=== PATIENT | female | born 1945 | race Caucasian/White ===

== ENCOUNTER 2016-11-22 08:15 | Day surgery (SDC) | payer MEDICARE, OTHER ==
[2016-11-22 09:06] VITALS: BMI 32.8
[2016-11-22 11:03] VITALS: O2SAT 100
[2016-11-22] MEDS ORDERED: Lidocaine Hydrochloride 5 ML INJ ONE (11:19)
[2016-11-22] MEDS ORDERED: Propofol 10 mg/ml Inj (20 ML) ONE (11:19)
[2016-11-22 12:12] VITALS: TEMP 98.2
[2016-11-22 12:51] VITALS: RESP 14
[2016-11-22 13:17] VITALS: BP 124/54; PULSE 59
== END 2016-11-22 13:18 | disposition home or self-care (01) ==
LOC: C.ENDO 08:15
PROVIDERS: ATTEND Internal Medicine Gastroenterology
DX: K21.0 Gastro-esophageal reflux disease with esophagitis (principal); K29.50 Unspecified chronic gastritis without bleeding; Z12.11 Encounter for screening for malignant neoplasm of colon; D12.2 Benign neoplasm of ascending colon; K64.1 Second degree hemorrhoids; B96.81 Helicobacter pylori [H. pylori] as the cause of diseases classified elsewhere
CPT/HCPCS: 43239; 45380; 88305; 88312; 88342; J2704; J3010; J7040

== ENCOUNTER 2018-01-29 10:07 | Emergency (ER) | payer MEDICARE, OTHER ==
[2018-01-29 10:07] VITALS: BMI 32.8
[2018-01-29 10:18] VITALS: O2SAT 100
[2018-01-29] MEDS ORDERED: Sodium Chloride 0.9% 1,000 ML IV ONE (10:44)
[2018-01-29] MEDS ORDERED: Sodium Chloride 0.9% 1,000 ML ONE (10:51)
[2018-01-29 11:13] LABS: BASO # 0.1 K/uL (0.0-0.2); BASO % 0.8 % (0.0-2.0); EOS # 0.4 K/uL (0.0-0.7); EOS % 4.7 % (0.0-4.0); LYMPH % 22.2 % (20.0-40.0); MEAN CELL VOLUME 85.5 fL (81.0-99.0); MEAN CORPUSCULAR HEMOGLOBIN 28.8 pg (27.0-31.0); MEAN CORPUSCULAR HGB CONC 33.7 g/dL (33.0-37.0); MEAN PLATELET VOLUME 8.2 fL (7.2-11.7); MONO # 0.8 K/uL (0.0-0.8); MONO % 9.2 % (0.0-10.0); NEUT # 5.7 K/uL (1.8-7.0); NEUT % 63.1 % (50.0-75.0); RBC 4.5 Mil/uL (3.80-5.20); RED CELL DISTRIBUTION WIDTH 14.1 % (11.5-14.5)
--- NOTE | 2018-01-29 11:19 | C.PDOC ---
History Of Present Illness 72yo female with history of asthma, hypertension, vertigo, and osteoporosis, comes to ER from [facility] for evaluation of dizziness and fall prior to arrival. Patient states she got up from a chair, felt dizzy and fell down and hit her head on the table. Patient now is complaining of right sided headache. Otherwise, she denies severe headache, vision changes, focal deficits , nausea, vomiting, neck pain, CP, SOB, dyspnea, diaphoresis, palpitation, abdominal pain, saddle anesthesia, incontinence, denies weakness, deformity to B /L lEs. Pt admits, takes Meclizine for intermittent dizziness, had similar sx in past. take meclizine ' every other day, did not take today". AT present time , pt appears comfortable, not in any apparent distress. FYI: I spoke with nurse at [facility] who reports she witnessed the fall and states the patient did not have a syncopal episode or loss of consciousness ; she states the patient was awake during the entire incident and was of normal affect after the fall. As per nurse, pt was ambulatory after fall at [facility] without difficulty. The nurse reported patient usually walks with a cane but did not use it today. Time Seen by Provider: 01/29/18 10:08 Chief Complaint (Nursing): Dizziness/Lightheaded History Per: Patient History/Exam Limitations: no limitations Onset/Duration Of Symptoms: Hrs Activity At Onset Of Symptoms: Sitting Seizure Or Post-ictal Symptoms: None Possible Causative Factor(s): Vertigo Fall Associated With With Symptoms: Yes, Positive Injury (hit head on side of table) Additional History Per: Patient Past Medical History Reviewed: Historical Data, Nursing Documentation, Vital Signs Vital Signs: Last Vital Signs Temp 98.1 F 01/29/18 14:13 Pulse 68 01/29/18 14:13 Resp 16 01/29/18 14:13 BP 138/69 01/29/18 14:13 Pulse Ox 100 01/29/18 14:13 - Medical History PMH: Anxiety, Arthritis, Asthma, HTN, Hypercholesterolemia, Hyperlipidemia, Osteoporosis Denies: HIV, Chronic Kidney Disease Surgical History: No Surg Hx - [facility] Procedures ENDOSC POLYPECTOMY OF LG INTEST (04/22/15) Family History: States: No Known Family Hx - Social History Hx Tobacco Use: No Hx Alcohol Use: No Hx Substance Use: No - Immunization History Hx Tetanus Toxoid Vaccination: No Hx Influenza Vaccination: No Hx Pneumococcal Vaccination: No Review Of Systems Except As Marked, All Systems Reviewed And Found Negative. Constitutional: Negative for: Fever, Chills Eyes: Negative for: Vision Change Cardiovascular: Negative for: Chest Pain Respiratory: Negative for: Shortness of Breath Gastrointestinal: Negative for: Vomiting, Abdominal Pain Musculoskeletal: Positive for: Neck Pain. Negative for: Arm Pain, Back Pain, Leg Pain Neurological: Positive for: Headache, Dizziness. Negative for: Weakness, Numbness, Incoordination, Seizures Physical Exam - Physical Exam Appears: Well, Non-toxic, No Acute Distress Skin: Warm, Dry, No Ecchymosis Head: Normacephalic, Tenderness (right occipital scalp tenderness), No Swelling , No Abrasion, No Laceration Eye(s): bilateral: PERRL, EOMI Ear(s): Bilateral: Normal Nose: No Flaring, No Discharge Oral Mucosa: Moist Tongue: Normal Appearing Lips: Normal Appearing Throat: No Drooling Neck: Normal ROM, Trachea Midline, No Midline Cervical Tenderness, No Paracervical Tenderness, No Step Off Deformity, Supple Chest: Symmetrical, No Deformity, No Tenderness Cardiovascular: Rhythm Regular, No Murmur, No JVD, Other ((-) carotid bruits B/L ) Respiratory: No Decreased Breath Sounds, No Accessory Muscle Use, No Stridor, No Wheezing, No Plerual Rub Gastrointestinal/Abdominal: Soft, No Tenderness, No Distention, No Guarding Back: No Vertebral Tenderness, No Paraspinal Tenderness Extremity: Normal ROM, No Tenderness, No Pedal Edema, No Deformity, No Swelling Neurological/Psych: Oriented x3, Normal Speech, Normal Cognition, Normal Motor, Normal Sensation, Normal Reflexes ED Course And Treatment - Laboratory Results Result Diagrams: 01/29/18 11:06 01/29/18 11:06 Lab Interpretation: Normal ECG: Interpreted By Me, Viewed By Me Interpretation Of ECG: SR@63/min, LAD, T wave inversion in III, no acute ST-T changes. O2 Sat by Pulse Oximetry: 100 (RA) Pulse Ox Interpretation: Normal - Radiology CXR: Interpreted by Me, Read By Radiologist CXR Interpretation: Yes: No Acute Disease - CT Scan/US CT head w/o contrast Other Rad Studies (CT/US): Radiology Report Reviewed CT/US Interpretation: Creator : Sagar Dubose RT. Dictator : Ronn Chan MD. Car Tester : Salvage Engineering Technician : Ronn Chan MD. Approver2 : Report Date : 01/29/2018 10:56:59. My Comment : . PROCEDURE: CHEST RADIOGRAPH, 1 VIEW. HISTORY: AMS. COMPARISON: Chest radiograph dated 2016. FINDINGS: LUNGS: Clear. PLEURA: No pneumothorax or pleural fluid seen. CARDIOVASCULAR: Atherosclerotic aortic calcifications. Cardiomediastinal silhouette stably enlarged. OSSEOUS STRUCTURES: Unchanged. VISUALIZED UPPER ABDOMEN: Normal. OTHER FINDINGS: None. IMPRESSION: No active disease. Progress Note: Labs, CXR, EKG, Urinalysis, and CT Head w/o contrast ordered. Patient given IV Fluids. Pt was OBS in ED for 2.5 hours and reports moderate improvement in sx. On re-eval, pt is afebrile, hemodynamicaly stable. Non- toxic. Pt is ambulatoyr in ED w/baseline gait. ENT: no acute findings. neck: SUpple, (-) JVD. Lungs: CTA B/L, BS equal B/L. Abd: benign, (-) guarding, (-) rebound. Neurologicaly intact. Blood work review and appears normal. EKG, CXR- no acute findings. CT head: no acute abnormalities noted. Orthostatic review- normal. case discussed with and admission offered to tele. Results review and discussed with patient and family. Pt refused admission and wish to go home now with outpt F/U. Pt clinical findings c/w dizziness, nos. Unstable gait, use of cane. Pt and family advised. ref. to F/u with PMD in 1 day for re- eavl. return if any worsening or new changes. case dsicussed with who agrees with dispo and patient discharge. Disposition Counseled Patient/Family Regarding: Studies Performed, Diagnosis, Need For Followup - Disposition Referrals: Magdalena Foreman MD [Staff Provider] - Disposition: HOME/ ROUTINE Disposition Time: 12:13 Condition: STABLE Additional Instructions: Encourage fluids Bedrest for 1-2 days Follow up with PMD in 1-2 days for re-evaluation. return to ED if any worsening or new changes. Instructions: Dizziness, Nonvertigo, (DC) Forms: [employer] (Setswana) - Clinical Impression Clinical Impression: Dizziness - PA / PHARMACY PICKING TECHNICIAN / Resident Statement MD/DO has reviewed & agrees with the documentation as recorded. - Scribe Statement The provider has reviewed the documentation as recorded by the Scribe (Vanessa Lopez) Provider Attestation: All medical record entries made by the Scribe were at my direction and personally dictated by me. I have reviewed the chart and agree that the record accurately reflects my personal performance of the history, physical exam, medical decision making, and the department course for this patient. I have also personally directed, reviewed, and agree with the discharge instructions and disposition.
[2018-01-29 11:23] LABS: ALB/GLOB RATIO 1.2 (1.0-2.1); ALBUMIN 4.5 g/dL (3.5-5.0); ALT/SGPT 34 U/L (9-52); AST/SGOT 36 U/L (14-36); BLOOD UREA NITROGEN 22 mg/dL (7-17); CALCIUM 9.7 mg/dl (8.6-10.4); GFR AFRICAN-AMERICAN > 60; GFR NON-AFRICAN AMERICAN > 60
[2018-01-29 11:24] LABS: INR 0.9; PROTHROMBIN TIME 10.3 SECONDS (9.7-12.2)
--- NOTE | 2018-01-29 11:24 | RAD ---
PROCEDURE: CHEST RADIOGRAPH, 1 VIEW HISTORY: AMS COMPARISON: Chest radiograph dated 12/31/2016. FINDINGS: LUNGS: Clear. PLEURA: No pneumothorax or pleural fluid seen. CARDIOVASCULAR: Atherosclerotic aortic calcifications. Cardiomediastinal silhouette stably enlarged. OSSEOUS STRUCTURES: Unchanged. VISUALIZED UPPER ABDOMEN: Normal. OTHER FINDINGS: None. IMPRESSION: No active disease.
[2018-01-29 11:31] LABS: URINE BILIRUBIN NEGATIVE (NEGATIVE); URINE BLOOD NEGATIVE (NEGATIVE); URINE CLARITY Clear (Clear); URINE COLOR Straw (YELLOW); URINE GLUCOSE (UA) NORMAL (Normal); URINE LEUKOCYTE ESTERASE TRACE Leu/uL (Negative); URINE PROTEIN NEGATIVE (NEGATIVE); URINE UROBILINOGEN NORMAL mg/dL (0.2-1.0)
--- NOTE | 2018-01-29 11:43 | CT ---
PROCEDURE: CT HEAD WITHOUT CONTRAST. HISTORY: AMS COMPARISON: CT head dated 01/27/2015. TECHNIQUE: Axial computed tomography images were obtained through the head/brain without intravenous contrast. Radiation dose: Total exam DLP = 800.8 mGy-cm. This CT exam was performed using one or more of the following dose reduction techniques: Automated exposure control, adjustment of the mA and/or kV according to patient size, and/or use of iterative reconstruction technique. FINDINGS: HEMORRHAGE: No intracranial hemorrhage. BRAIN: No mass effect or edema. Mild atrophy. Mild chronic microvascular ischemic changes. VENTRICLES: Mildly prominent. No hydrocephalus. CALVARIUM: Unremarkable. PARANASAL SINUSES: Mild ethmoid sinus mucosal thickening. MASTOID AIR CELLS: Unremarkable as visualized. No inflammatory changes. OTHER FINDINGS: None. IMPRESSION: No acute intracranial pathology. Age-related changes.
[2018-01-29 14:14] VITALS: BP 138/69; PULSE 68; RESP 16; TEMP 98.1
== END 2018-01-29 14:14 | disposition home or self-care (01) ==
LOC: C.ER 10:07
DX: R42 Dizziness and giddiness (principal); E78.00 Pure hypercholesterolemia, unspecified; I10 Essential (primary) hypertension; J45.909 Unspecified asthma, uncomplicated; M81.0 Age-related osteoporosis without current pathological fracture
CPT/HCPCS: 70450; 71045; 80053; 81001; 82550; 82948; 84484; 85025; 85610; 85730; 96360; 99285; J7030